=== PATIENT | male | born 1985 | race Hispanic/Latino ===

== ENCOUNTER 2022-04-25 18:30 | Emergency (ER) | payer SELFPAY ==
[~2022-04-25] VITALS: Ht 165.1 cm; Wt 61.2 kg
== END 2022-04-25 21:44 | disposition home or self-care (01) ==
LOC: ED 18:30 → EDBD 18:31 → ED 18:31
DX: R41.82 Altered mental status, unspecified (principal); Z02.89 Encounter for other administrative examinations; H11.32 Conjunctival hemorrhage, left eye; F15.90 Other stimulant use, unspecified, uncomplicated
CPT/HCPCS: 36415; 70450; 80053; 81001; 84443; 85025; G0480